=== PATIENT | male | born 1975 | race Caucasian/White ===

== ENCOUNTER 2019-03-17 13:04 | Emergency (ER) | payer OTHER ==
--- NOTE | 2019-03-17 13:21 | UC ---
Laceration HPI - HPI Summary HPI Summary: 43 yo male presents with LEFT knee laceration. He tells me that about 20min [employer] he was cutting wood and tripped his left knee landed on his chainsaw that was on the ground and not running. He sustained a laceration to the area. Bandaged the area and came to . Thinks his last tetanus was about 5-6 years ago. He is ambulatory - History Of Current Complaint Stated Complaint: KNEE LAC Time Seen by Provider: 03/17/19 13:21 Hx Obtained From: Patient Laceration Location: Knee Mechanism Of Injury: Sharp Trauma Onset/Duration: Sudden Onset Severity: Mild Pain Intensity: 3 Pain Scale Used: 0-10 Numeric - Allergies/Home Medications Allergies/Adverse Reactions: Allergies Allergy/AdvReac Type Severity Reaction Status Date / Time clindamycin Allergy Hives Verified 03/17/19 13:30 PMH/Surg Hx/FS Hx/Imm Hx - Additional Past Medical History Additional PMH: None - Surgical History Surgical History: None - Family History Known Family History: Positive: Non-Contributory - Social History Occupation: Employed Full-time Lives: With Family Alcohol Use: Occasionally Substance Use Type: None Smoking Status (MU): Never Smoked Tobacco Review of Systems All Other Systems Reviewed And Are Negative: No Constitutional: Positive: Negative Skin: Positive: Other - Left knee laceration Respiratory: Positive: Negative Cardiovascular: Positive: Negative Neurovascular: Positive: Negative Neurological: Positive: Negative Psychological: Positive: Negative Physical Exam - Summary Physical Exam Summary: GENERAL: NAD. WDWN. No pain distress. SKIN: LEFT KNEE: overlying patella there are 2 lacerations. #1 2.5cm linear laceration partial thickness - no tendon or bony involvement. #2 2.0cm linear laceration just through the epidermis. CHEST: No accessory muscle use. Breathing comfortably and in no distress. CV: Pulses intact. Cap refill <2seconds MSK: LEFT KNEE FROM NEURO: Alert. PSYCH: Age appropriate behavior. Triage Information Reviewed: Yes Vital Signs: Vital Signs: Temp Pulse Resp BP Pulse Ox 98.1 F 97 20 163/96 98 03/17/19 13:25 03/17/19 13:25 03/17/19 13:25 03/17/19 13:25 03/17/19 13:25 Vital Signs Reviewed: Yes Laceration Repair - Laceration Repair 1 Description: Linear Laceration Size After Repair: Length (cm) - 2.5 Modified For Repair: No Anesthesia Used: 2.0% Lido Irrigation With Pressure Irrigation Device: Yes Closure Material: Sutures - #6 Closure Method: Single Layer Suture Of: Skin Suture Type: Prolene - 4-0 2 Description: Linear Laceration Size After Repair: Length (cm) - 2.0 Modified For Repair: No Anesthesia Used: 2.0% Lido Irrigation With Pressure Irrigation Device: Yes Closure Material: Sutures - #3 Closure Method: Single Layer Suture Of: Skin Suture Type: Prolene Laceration Course/Dx - Course/Dx Course Of Treatment: The procedure was explained to the pt and all questions were answered. A time out was performed, witnessed, and signed. The area was irrigated with 200mL sterile saline. 2mL of 2% lidocaine without epi was administered and good anesthetization was achieved. In the usual sterile fashion, THREE 5-0 prolene and SIX 4-0 prolene interrupted sutures were placed. Homeostasis achieved. The wound was bandaged with telfa. Pt tolerated procedure well. tdap updated today. Will place him on keflex for dirty wound. - Diagnosis Provider Diagnosis: Knee laceration Discharge ED - Sign-Out/Discharge Documenting (check all that apply): Patient Departure All imaging exams completed and their final reports reviewed: No Studies - Discharge Plan Condition: Stable Disposition: HOME Prescriptions: Cephalexin CAP* [Keflex CAP*] 500 mg PO BID #14 cap Patient Education Materials: Care For Your Stitches (ED), Laceration (ED) Referrals: Selvin Rivera MD [Primary Care Provider] - Additional Instructions: 1) Please keep the area bandage, clean, dry, and intact for the next 24- 48hours. Then change the bandage daily until sutures are removed. 2) If you develop a fever, colored or thick discharge, increased pain or swelling - please call your PCP or return for a wound check. 3) Please return in 10-12 days to have your NINE sutures removed. Your blood pressure was high at todays visit. Please see your primary provider within 4 weeks for recheck and re-evaluation. - Billing Disposition and Condition Condition: STABLE Disposition: Home
[2019-03-17] MEDS ORDERED: Tetan/Diph/Pertus SYR(Tdap)* 0.5 ML SYR(BOOSTRIX) use SYR contains LATEX IM ONE (13:25)
[2019-03-17] MEDS ORDERED: Lidocaine 2% PF * 5 ML VIAL INJ ONE (13:25)
== END 2019-03-17 14:22 | disposition home or self-care (01) ==
LOC: UCEAST 13:04
DX: S81.012A Laceration without foreign body, left knee, initial encounter (principal); Z88.1 Allergy status to other antibiotic agents; Z23 Encounter for immunization; W31.2XXA Contact with powered woodworking and forming machines, initial encounter; Y93.89 Activity, other specified; Y92.9 Unspecified place or not applicable
CPT/HCPCS: 12002; 90472; 90715; 99202; G0463